=== PATIENT | female | born 1965 | race Caucasian/White ===

== ENCOUNTER → 2018-01-06 07:04 | Outpatient (CLI) | payer OTHER, SELFPAY ==
--- NOTE | 2018-01-06 07:11 | BI_ITS ---
MAMMOGRAPHY - BILATERAL SCREENING REASON FOR EXAM: Female, 52 years old. Routine annual screening examination. PERTINENT HISTORY: Grandmother with breast cancer. TECHNIQUE: Digital bilateral breast yovani (3D mammographic acquisition) in the CC and MLO projections. 2-D mediolateral oblique (MLO) and craniocaudad (CC) views of both breasts were obtained. CAD: Full Field Digital Mammography with Computer Added Detection was performed. COMPARISON: Comparison is made with prior examination dated November 24, 2016. FINDINGS: Breast Composition: The breasts are extremely dense, which lowers the sensitivity of mammography. There are no dominant masses or suspicious calcifications. No other significant abnormalities are identified. There has been no significant change since the prior study. BI/SCREENING MAMM (CAD), BILAT IMPRESSION: Stable bilateral screening mammogram. Yearly follow-up mammogram recommended. (A) ASSESSMENT CATEGORY: BIRADS Category 1: Negative. A letter regarding these results will be sent to the patient by the facility within 30 days. Approximately 10% of breast cancers are not detected by mammography. A normal mammogram should not delay biopsy of a clinically suspicious abnormality. [id number] Electronically Signed: Maximo Dickerson MD at 11:15 EST Tel [phone], Service support ,
== END ==
PROVIDERS: Family Provider Internal Medicine; PCP Internal Medicine; Referring Provider Obstetrics & Gynecology; Visit Provider Obstetrics & Gynecology
DX: Z12.31 Encounter for screening mammogram for malignant neoplasm of breast (principal)
CPT/HCPCS: 77063; 77067

== ENCOUNTER 2018-01-28 09:00 | Outpatient (RCR) | payer OTHER, SELFPAY | END 2018-01-28 23:59 | LOC: NS 09:00 | PROVIDERS: Family Provider Internal Medicine; PCP Internal Medicine; Visit Provider Obstetrics & Gynecology | DX: E66.9 Obesity, unspecified (principal); Z68.35 Body mass index [BMI] 35.0-35.9, adult; Z71.3 Dietary counseling and surveillance | CPT/HCPCS: 97802; 97803 ==

== ENCOUNTER 2018-02-18 10:00 | Outpatient (RCR) | payer OTHER, SELFPAY ==
[2017-12-21 09:43] VITALS: BMI 35.1
== END 2018-02-28 23:59 ==
LOC: NS 10:00
PROVIDERS: Family Provider Internal Medicine; PCP Internal Medicine; Visit Provider Obstetrics & Gynecology
DX: E66.9 Obesity, unspecified (principal); Z68.35 Body mass index [BMI] 35.0-35.9, adult; Z71.3 Dietary counseling and surveillance
CPT/HCPCS: 97803

== ENCOUNTER 2018-03-11 09:20 | Outpatient (RCR) | payer OTHER, SELFPAY ==
[2017-12-21 09:43] VITALS: BMI 35.1
== END 2018-03-31 23:59 ==
LOC: NS 09:20
PROVIDERS: Family Provider Internal Medicine; PCP Internal Medicine; Visit Provider Obstetrics & Gynecology
DX: E66.9 Obesity, unspecified (principal); Z68.35 Body mass index [BMI] 35.0-35.9, adult; Z71.3 Dietary counseling and surveillance
CPT/HCPCS: 97803

== ENCOUNTER 2018-04-08 10:22 | Outpatient (RCR) | payer OTHER, SELFPAY ==
[2017-12-21 09:43] VITALS: BMI 35.1
== END 2018-04-28 23:59 ==
LOC: NS 10:22
PROVIDERS: Family Provider Internal Medicine; PCP Internal Medicine; Visit Provider Obstetrics & Gynecology
DX: E66.9 Obesity, unspecified (principal); Z68.35 Body mass index [BMI] 35.0-35.9, adult; Z71.3 Dietary counseling and surveillance
CPT/HCPCS: 97803

== ENCOUNTER 2018-05-06 09:46 | Outpatient (RCR) | payer OTHER, SELFPAY ==
[2017-12-21 09:43] VITALS: BMI 35.1
[2018-05-02 14:08] VITALS: BMI 35.1
== END 2018-05-29 23:59 ==
LOC: NS 09:46
PROVIDERS: Family Provider Internal Medicine; PCP Internal Medicine; Visit Provider Obstetrics & Gynecology
DX: E66.9 Obesity, unspecified (principal); Z68.35 Body mass index [BMI] 35.0-35.9, adult; Z71.3 Dietary counseling and surveillance
CPT/HCPCS: 97803

== ENCOUNTER 2018-06-10 09:54 | Outpatient (RCR) | payer OTHER, SELFPAY ==
[2018-05-02 14:08] VITALS: BMI 35.1
== END 2018-06-28 23:59 ==
LOC: NS 09:54
PROVIDERS: Family Provider Internal Medicine; PCP Internal Medicine; Visit Provider Obstetrics & Gynecology
DX: E66.9 Obesity, unspecified (principal); Z68.35 Body mass index [BMI] 35.0-35.9, adult; Z71.3 Dietary counseling and surveillance
CPT/HCPCS: 97803

== ENCOUNTER 2018-09-23 10:44 | Outpatient (RCR) | payer SELFPAY ==
[2018-05-02 14:08] VITALS: BMI 35.1
== END 2018-09-28 23:59 ==
LOC: NS 10:44
PROVIDERS: Family Provider Internal Medicine; PCP Internal Medicine; Visit Provider Obstetrics & Gynecology
DX: E66.9 Obesity, unspecified (principal); Z68.35 Body mass index [BMI] 35.0-35.9, adult; Z71.3 Dietary counseling and surveillance
CPT/HCPCS: 97803

== ENCOUNTER 2018-10-28 08:19 | Outpatient (RCR) | payer SELFPAY ==
[2018-05-02 14:08] VITALS: BMI 35.1
== END 2018-10-29 23:59 ==
LOC: NS 08:19
PROVIDERS: Family Provider Internal Medicine; PCP Internal Medicine; Visit Provider Obstetrics & Gynecology
DX: E66.9 Obesity, unspecified (principal); Z68.35 Body mass index [BMI] 35.0-35.9, adult; Z71.3 Dietary counseling and surveillance
CPT/HCPCS: 97803

== ENCOUNTER 2018-11-18 08:29 | Outpatient (RCR) | payer SELFPAY ==
[2018-05-02 14:08] VITALS: BMI 35.1
== END 2018-11-28 23:59 ==
LOC: NS 08:29
PROVIDERS: Family Provider Internal Medicine; PCP Internal Medicine; Visit Provider Obstetrics & Gynecology
DX: E66.9 Obesity, unspecified (principal); Z68.35 Body mass index [BMI] 35.0-35.9, adult; Z71.3 Dietary counseling and surveillance
CPT/HCPCS: 97803

== ENCOUNTER → 2019-08-04 09:18 | Outpatient (CLI) | payer OTHER, SELFPAY ==
[2019-08-04 08:46] VITALS: BMI 35.1
[2019-08-04 13:20] LABS: T4 Free Direct 1.15 ng/dL (0.76-1.46); Thyroid Stim Hormone (TSH) 4.64 uIU/mL (0.358-3.74)
== END ==
PROVIDERS: PCP Internal Medicine; Referring Provider Internal Medicine; Visit Provider Internal Medicine
DX: Z13.29 Encounter for screening for other suspected endocrine disorder (principal)
CPT/HCPCS: 36415; 84439; 84443

== ENCOUNTER → 2019-08-15 08:15 | Outpatient (CLI) | payer OTHER, SELFPAY ==
[2019-08-04 08:46] VITALS: BMI 35.1
--- NOTE | 2019-08-15 08:16 | US_ITS ---
STUDY: THYROID ULTRASOUND REASON FOR EXAM: Female, 54 years old. Neck fullness TECHNIQUE: Ultrasound evaluation of the thyroid was performed with real-time and static patricia-scale imaging. COMPARISON: None. FINDINGS: RIGHT LOBE: The right lobe of the thyroid gland measures 3.8 cm x 1.2 cm x 1.1 cm. There is a heterogeneous echotexture. There is a 9 mm x 5 mm x 4 mm well-defined hypoechoic solid nodule in the upper pole. LEFT LOBE: The left lobe of the thyroid gland measures 3.9 cm x 1.0 cm x 1.1 cm. There is a heterogeneous echotexture. There is a 6 mm x 3 mm x 4 mm hypoechoic solid nodule in the midpole of the left lobe. ISTHMUS: The isthmus measures 2.0 mm. The regional lymph nodes are normal. US/Thyroid IMPRESSION: Heterogeneous echotexture of the right and left lobes of the thyroid. Subcentimeter hypoechoic solid nodules in both lobes as described. Electronically Signed: Maximo Dickerson, at 12:34 EDT , Service support ,
--- NOTE | 2019-08-15 08:40 | RAD_ITS ---
STUDY: X-RAY - PELVIS AND LEFT HIP REASON FOR EXAM: Female, 54 years old. PAIN, NKI TECHNIQUE: 3 views of the pelvis and hip. COMPARISON: None. FINDINGS: There is a non-specific bowel gas pattern. Normal visualized soft tissue structures. Normal bilateral iliac wings, sacroiliac joints and visualized sacrum. Normal bilateral superior and inferior pubic rami. Normal pubic symphysis. Normal bilateral ischial tuberosities. Normal visualized femoral head. Normal acetabulum. Normal hip joint. RAD/HIP, UNI W/ Pelvis 2-3 Views IMPRESSION: Normal x-ray examination of the pelvis and hip. Electronically Signed: Maximo Dickerson, at 9:25 EDT , Service support ,
== END ==
PROVIDERS: PCP Internal Medicine; Referring Provider Internal Medicine; Visit Provider Internal Medicine
DX: M25.552 Pain in left hip (principal); R22.1 Localized swelling, mass and lump, neck
CPT/HCPCS: 73502; 76536

== ENCOUNTER → 2019-09-15 10:29 | Outpatient (CLI) | payer OTHER, SELFPAY ==
[2019-09-15 09:57] VITALS: BMI 34.9
[2019-09-15 12:55] LABS: T4 Free Direct 1.15 ng/dL (0.76-1.46)
== END ==
PROVIDERS: PCP Internal Medicine; Referring Provider Internal Medicine; Visit Provider Internal Medicine
DX: R94.6 Abnormal results of thyroid function studies (principal)
CPT/HCPCS: 36415; 84439; 84443

== ENCOUNTER → 2019-10-24 07:38 | Outpatient (CLI) | payer OTHER, SELFPAY ==
[2018-05-02 14:08] VITALS: BMI 35.1
[2019-09-15 09:57] VITALS: BMI 34.9
--- NOTE | 2019-10-24 07:38 | BI_ITS ---
MAMMOGRAPHY - BILATERAL SCREENING REASON FOR EXAM: Female, 54 years old. Routine annual screening examination. PERTINENT HISTORY: Grandmother with breast cancer. TECHNIQUE: Digital bilateral breast jennifer (3D mammographic acquisition) in the CC and MLO projections. 2-D mediolateral oblique (MLO) and craniocaudad (CC) views of both breasts were obtained. CAD: Full Field Digital Mammography with Computer Added Detection was performed. COMPARISON: Comparison is made with prior study dated 01/06/2018 and 11/24/2016. FINDINGS: Breast Composition: The breasts are extremely dense, which lowers the sensitivity of mammography. I suspect a 1.8 cm x 0.85 cm nodule in the superior aspect of the left breast. This is not well seen on the craniocaudad view. THE PATIENT WILL BE RECALLED FOR ADDITIONAL VIEWS INCLUDING 90 DEGREE LATERAL AND COMPRESSION SPOT VIEWS OF THE LEFT BREAST. Stable benign appearing bilateral axillary lymph nodes. No other significant abnormalities are identified. BI/SCREEN MAMM (CAD) W/JENNIFER BILAT IMPRESSION: Possible 1.8 cm x 0.85 cm nodule in the superior aspect of the left breast seen on the MLO view. The patient will be recalled for additional views. Recall Side: Left Breast ASSESSMENT CATEGORY: BIRADS Category 0: Incomplete. Need additional imaging evaluation. A letter regarding these results will be sent to the patient by the facility within 30 days. Approximately 10% of breast cancers are not detected by mammography. A normal mammogram should not delay biopsy of a clinically suspicious abnormality. [id number] Electronically Signed: Maximo Dickerson, at 9:06 EDT , Service support ,
== END ==
PROVIDERS: PCP Internal Medicine; Referring Provider Obstetrics & Gynecology; Visit Provider Obstetrics & Gynecology
DX: Z12.31 Encounter for screening mammogram for malignant neoplasm of breast (principal)
CPT/HCPCS: 77063; 77067

== ENCOUNTER → 2019-10-26 08:58 | Outpatient (CLI) | payer OTHER, SELFPAY ==
[2019-09-15 09:57] VITALS: BMI 34.9
--- NOTE | 2019-10-26 09:02 | BI_ITS ---
MAMMOGRAPHY - UNILATERAL DIAGNOSTIC: LEFT BREAST REASON FOR EXAM: Female, 54 years old. Abnormal screening mammogram. PERTINENT HISTORY: Grandmother with breast cancer. TECHNIQUE: Compression spot views and 90 degree lateral view of the left breast were obtained. CAD: Full Field Digital Mammography with Computer Added Detection was performed. COMPARISON: Comparison is made with prior mammogram dated 10/24/2019. FINDINGS: Breast Composition: The breasts are extremely dense, which lowers the sensitivity of mammography. There are no dominant masses or suspicious calcifications. The previously possible nodule in the superior aspect of the left breast is not well seen at this examination most likely representing superimposition of tissue. Correlation with ultrasound is recommended. No other significant abnormalities are identified. BI/DIAG MAMM W/CAD, UNILAT IMPRESSION: No mammographic abnormality is seen at this time. Correlation with ultrasound of the left breast is recommended for further evaluation. ASSESSMENT CATEGORY: BIRADS Category 0: Incomplete. Need additional imaging evaluation. A letter regarding these results will be sent to the patient by the facility within 30 days. Approximately 10% of breast cancers are not detected by mammography. A normal mammogram should not delay biopsy of a clinically suspicious abnormality. Electronically Signed: Maximo Dickerson, at 10:21 EDT , Service support ,
--- NOTE | 2019-10-26 09:02 | US_ITS ---
STUDY: ULTRASOUND BREAST - LEFT REASON FOR EXAM: Female, 54 years old. Abnormal screening mammogram. TECHNIQUE: Axial and longitudinal images of the LEFT breast were performed with a high resolution ultrasound transducer. # OF IMAGES: [id number] COMPARISON: Comparison is made with prior mammogram done earlier in the day as well as prior mammogram dated 10/24/2019. FINDINGS: LEFT Breast: There is a 1.2 cm x 1.4 cm x 0.7 cm hypoechoic/complex cystic nodule with slightly irregular borders at the 2 o''clock position of the breast at 3 cm from nipple. A biopsy is recommended for further evaluation. Incidental note is made of a 5 mm x 6 mm x 5 mm hypoechoic nodule with a fatty hilum suggestive of a benign lymph node at the 3 o''clock position of the breast. US/Breast Limited Unilateral IMPRESSION: 1.2 cm x 1.4 cm x 0.7 cm hypoechoic/complex cystic nodule with slightly irregular borders at the 2 o''clock position of the breast at 3 cm from nipple. A biopsy is recommended for further evaluation. ASSESSMENT CATEGORY: BIRADS Category 4: Suspicious - Biopsy Should Be Considered. A letter regarding these results will be sent to the patient by the facility within 30 days. Electronically Signed: Maximo Dickerson, at 13:12 EDT , Service support ,
== END ==
PROVIDERS: PCP Internal Medicine; Referring Provider Obstetrics & Gynecology; Visit Provider Obstetrics & Gynecology
DX: N63.20 Unspecified lump in the left breast, unspecified quadrant (principal)
CPT/HCPCS: 76642; 77065

== ENCOUNTER → 2019-10-27 09:47 | Outpatient (CLI) | payer OTHER, SELFPAY ==
[2019-10-27 09:16] VITALS: BMI 34.9
[2019-10-27 11:55] LABS: Absolute Lymphocyte Count 1.87 X10^3/uL (0.83-4.51); Absolute Neutrophil Count 2.9 X10^3/uL (2.0-7.7); Basophil# 0.04 X10^3/uL; Basophil% 0.7 % (0-1); Eosinophil# 0.17 X10^3/uL; Eosinophils% 3.2 % (0-5); Hematocrit 42.4 % (37-47); Hemoglobin 13.7 g/dL (12.0-15.0); Lymphocyte # 1.87 X10^3/ul (4.0); Lymphocyte % 34.8 % (19-41); Mean Corp Hgb Conc 32.3 g/dL (32-36); Mean Corpuscular Hgb 28.7 pg (27.0-32.0); Mean Corpuscular Volume 88.7 fL (81-99); Monocyte% 7.4 % (0-10); NRBC Flagged by Analyzer 0 % (0-5); Neutrophil # 2.89 X10^3/uL (2.7-7.7); Neutrophil % 53.7 % (47-70); Platelet Count 111 K/mm3 (150-450); RBC Distribution Width CV 12.6 % (11.6-14.6); RBC Distribution Width SD 40.8 fl (35.1-43.9); Red Blood Count 4.78 M/mm3 (4.2-5.4); White Blood Count 5.4 K/mm3 (4.4-11.0)
[2019-10-27 12:28] LABS: ALB/GLOB Ratio 0.9 RATIO (0.9-2.4); AST(SGOT) 19 U/L (15-37); Alanine Aminotransfer ALT/SGPT 31 U/L (13-56); Albumin, Serum 3.6 g/dL (3.2-5.0); Alkaline Phosphatase 67 U/L (45-117); Anion Gap 4 (5-15); BUN 17 mg/dL (7-18); BUN/Creat Ratio 21.9 RATIO (10-20); Calcium,Total 9.1 mg/dL (8.5-10.1); Chloride 106 mmol/L (98-107); Cholesterol 231 mg/dL (200); Creatinine, Serum 0.78 mg/dL (0.55-1.02); EST Glomerular Filtration Rate 83 mL/min (>60); Est Glom Filt Rate - Afr Amer 100 mL/min (>60); Globulin 4.1 g/dL (2.2-4.2); Glucose 69 mg/dL (74-106); High Density Lipoprotein 49 mg/dL; Potassium 4.3 mmol/L (3.5-5.1); Protein, Total 7.7 g/dL (6.4-8.2); Sodium Level 139 mmol/L (136-145); Triglycerides 145 mg/dL; Very Low Density Lipoprotein 29 mg/dL (5-40)
== END ==
PROVIDERS: PCP Internal Medicine; Referring Provider Internal Medicine; Visit Provider Internal Medicine
DX: Z00.00 Encounter for general adult medical examination without abnormal findings (principal)
CPT/HCPCS: 36415; 80053; 80061; 85025

== ENCOUNTER → 2019-10-31 | Outpatient (CLI) | payer OTHER, SELFPAY ==
--- NOTE | 2019-10-31 | BRBX_PTH ---
PATIENT: FELIPE MOORE LOC: [facility] U#:[id number] AGE/SX: 54/F ROOM: RE10/31/[address]: Dr. Gildardo Saha MD : 1965 BED: DIS: 10/31/2019 SPEC #: [id number] RECD: 11/01/19 15:26 STATUS: FRANK REJoel #: [id number] AURE: 10/31/19 00:[address]: Gildardo Saha DEPT: SURGICAL PATHOLOGY RECD BY: Slava Garay ENTERED: 11/01/19 10:33 SP TYPE: BREAST BX OTHR DR: Dr. Val Ruffin MD Tissues: Left breast, NOS Procedures: Surgery Specimen Level IV HEADER OPERATION: Ultrasound-guided left breast biopsy PRE-OP DIAGNOSIS: Left breast mass TISSUE SUBMITTED: Left breast tissue MICROSCOPIC DIAGNOSIS Left breast tissue, ultrasound-guided core biopsy: Fibrocystic changes. Focal microcalcification. Negative for atypia or malignancy. See comment. ANEESH:arabella 11/02/19 COMMENT Correlation with clinical, radiologic findings and appropriate follow up are necessary. MICROSCOPIC DESCRIPTION Slides are reviewed. GROSS DESCRIPTION Received in fixative is one container labeled with the patient name and designated left breast. The specimen consists of multiple elongated fragments of wilson-yellow fibroadipose tissue that in aggregate measure 1.5 x 1.5 x 0.1 cm. The entire specimen is submitted in one cassette. / ANEESH:arabella 11/01/19 TC:5 CPT: 93410
[2019-10-31 13:44] VITALS: BMI 34.9
== END | disposition home or self-care (01) ==
PROVIDERS: PCP Internal Medicine; Referring Provider Surgery; Visit Provider Surgery
DX: N60.12 Diffuse cystic mastopathy of left breast (principal); R92.0 Mammographic microcalcification found on diagnostic imaging of breast
CPT/HCPCS: 88305

== ENCOUNTER → 2019-11-15 | Outpatient (CLI) | payer OTHER, SELFPAY ==
[2019-11-15 09:12] VITALS: BMI 34.9
[2019-11-21 10:27] LABS: HPV APTIMA, High Risk Negative (Negative)
== END | disposition home or self-care (01) ==
LOC: LABSPEC 15:30
PROVIDERS: PCP Internal Medicine; Visit Provider Obstetrics & Gynecology
DX: Z12.4 Encounter for screening for malignant neoplasm of cervix (principal)
CPT/HCPCS: 87624; 88175; G0145

== ENCOUNTER → 2020-06-19 08:51 | Outpatient (CLI) | payer OTHER, SELFPAY ==
[2020-02-13 15:33] VITALS: BMI 35.4
--- NOTE | 2020-06-19 08:54 | US_ITS ---
STUDY: ULTRASOUND BREAST - LEFT REASON FOR EXAM: Female, 55 years old. Follow-up for left breast biopsy. TECHNIQUE: Axial and longitudinal images of the LEFT breast were performed with a high resolution ultrasound transducer. # OF IMAGES: 38 COMPARISON: Comparison is made with prior mammogram done earlier today as well as prior ultrasound of the left breast dated 10/26/2019. FINDINGS: LEFT Breast: The previously seen cystic nodule is not present at this time. This was previously drained. At 3 o''clock position to swallow some nipple, there is a 6 mm x 7 mm x 4 mm lymph node. US/Breast Limited Unilateral IMPRESSION: Stable appearance of the left axillary lymph node. The previously seen cystic nodule is not present at this time. ASSESSMENT CATEGORY: BIRADS Category 2: Benign. A letter regarding these results will be sent to the patient by the facility within 30 days. Electronically Signed: Maximo Dickerson MD at 14:04 EDT , Service support ,
--- NOTE | 2020-06-19 08:55 | BI_ITS ---
MAMMOGRAPHY - UNILATERAL DIAGNOSTIC: LEFT BREAST REASON FOR EXAM: Female, 55 years old. Six-month follow-up following ultrasound-guided left breast biopsy. PERTINENT HISTORY: Grandmother with breast cancer. TECHNIQUE: Digital unilateral breast yovani (3D mammographic acquisition) in the CC and MLO projections. 2-D mediolateral oblique (MLO) and craniocaudad (CC) views of both breasts were obtained. CAD: Full Field Digital Mammography with Computer Added Detection was performed. COMPARISON: Comparison is made with prior mammogram dated 10/26/2019 and 10/24/2019. FINDINGS: Breast Composition: The breasts are extremely dense, which lowers the sensitivity of mammography. There are no dominant masses or suspicious calcifications. A tissue clip marker is seen in the upper lateral aspect of the left breast at the site of the prior ultrasound-guided breast biopsy. No other significant abnormalities are identified. There has been no significant change since the prior study. BI/DIAG MAMM W/CAD, UNILAT IMPRESSION: Stable unilateral diagnostic mammogram. One year follow-up mammogram recommended. (A) ASSESSMENT CATEGORY: BIRADS Category 2: Benign. A letter regarding these results will be sent to the patient by the facility within 30 days. Approximately 10% of breast cancers are not detected by mammography. A normal mammogram should not delay biopsy of a clinically suspicious abnormality. Electronically Signed: Maximo Dickerson MD at 9:38 EDT , Service support ,
== END ==
PROVIDERS: PCP Internal Medicine; Referring Provider Surgery; Visit Provider Surgery
DX: R92.8 Other abnormal and inconclusive findings on diagnostic imaging of breast (principal)
CPT/HCPCS: 76642; 77061; 77065; G0279

== ENCOUNTER 2021-04-06 10:43 | Observation (INO) | payer OTHER, SELFPAY ==
[2021-04-06 10:44] VITALS: BP 140/92; PULSE 106; RESP 17; TEMP 36.6; O2SAT 98; BMI 36.6
--- NOTE | 2021-04-06 11:10 | EDS_ITS ---
HPI History of Present Illness Chief Complaint: Abd Pain Informant: patient Onset/Context/Timing Onset: Yesterday Context: Gradual Onset Current Severity: Moderate Maximum Severity: Moderate Narrative Narrative: Patient presents secondary abdominal pain with nausea and vomiting. Patient states around 11 PM last evening she developed epigastric abdominal pain that slightly wraps around both sides of her abdomen. Around 430 this morning she started vomiting. She did have a normal bowel movement this morning. No fever or chills. PFSH PFS Medical History Endometriosis History of abnormal cervical Pap smear Impetigo Home Medications multivitamin 1 tab PO DAILY 08/04/19 [History Last Taken Unknown] turmeric root extract 500 mg capsule 500 mg PO DAILY 11/15/19 [History Last Taken Unknown] mupirocin 2 % topical ointment 1 applic TOPICAL TID 7 Days #22 g 03/21/21 [Rx Last Taken Unknown] ascorbic acid (vitamin C) [Vitamin C] mg PO DAILY 04/06/21 [History Last Taken Unknown] cholecalciferol (vitamin D3) [Vitamin D3] mcg PO DAILY 04/06/21 [History Last Taken Unknown] zinc 100 mg PO DAILY 04/06/21 [History Last Taken Unknown] Allergy/AdvReac Type Severity Reaction Status Date / Time hydroxyzine [From Atarax] Allergy Unknown Rash Verified 04/06/21 10:43 escitalopram [From Lexapro] Allergy Hives Verified 04/06/21 10:43 Family History Brother Heart disease Dwarfism Alcohol abuse Grandmother Breast cancer Brother Hypertension Thyroid disorder Father Hypertension Melanoma Mother Uterine cancer Daughter , 1 year old 1994 Spinal muscular atrophy Son , 1996 Spinal muscular atrophy Surgical History H/O breast biopsy History of laparoscopy History of toe surgery Social History adopted: No household members: family housing: house number of children: 2 pets and animals: Yes Smoking Status: Never smoker second hand exposure: No alcohol intake: never substance use type: does not use caffeine: Yes what type of physical activity do you participate in: walking frequency: 1-2 times per week seatbelt use: always do you feel safe at home: Yes additional social history: - Greg Patient owns dance studio ROS ROS ED Constitutional Constitutional ED: Denies chills or fever(s) Eyes Eyes: Denies change in vision ENT ENT ED: Denies sore throat Cardiovascular Cardiovascular: Denies chest pain Respiratory/Chest Respiratory/Chest: Denies cough or dyspnea Gastrointestinal Gastrointestinal: Reports abdominal pain, nausea and vomiting; Denies diarrhea Genitourinary Genitourinary ED: Denies dysuria Musculoskeletal Musculoskeletal: Denies back pain Integumentary Denies rash Neurologic Neurologic: Denies headache(s) or weakness Allergic/Immunologic Allergic/Immunologic ED: Denies urticaria EXAM Physical Exam Const Vital Signs: 04/06/21 10:44 04/06/21 12:36 04/06/21 15:21 Temperature 97.9 F Temperature Source Temporal Pulse Rate 106 H 88 83 Respiratory Rate 17 16 16 Blood Pressure 140/92 H 127/80 H 134/85 H Blood Pressure Mean 108 95 101 Pulse Ox 98 97 97 Oxygen Delivery Method Room Air Room Air Room Air 04/06/21 18:03 Temperature Temperature Source Pulse Rate 95 Respiratory Rate 18 Blood Pressure 126/76 H Blood Pressure Mean 92 Pulse Ox 98 Oxygen Delivery Method Room Air Positive well nourished and well developed General Appearance ED: well developed HEENT Reports moist mucous membranes Eyes PERRL and EOMs intact bilaterally Neck supple Chest Wall inspection of chest normal and palpation of chest normal Resp normal respiratory effort and clear to auscultation bilaterally Cardio regular rate and regular rhythm GI Auscultation: hypoactive bowel sounds Palpation: soft and tender epigastric and RUQ; Negative for guarding or rebound tenderness present Extremity normal to inspection Neuro oriented x3 Sensorium / Orientation: alert Psych mental status grossly normal Skin no rashes or lesions noted MDM MDM MDM Narrative Medical decision making narrative: Patient given morphine and Zofran for pain. Lab work ordered. Lab Data Attestation: I reviewed the patient's lab results. Labs: Laboratory Results - last 24 hr 04/06/21 04/06/21 11:20 11:20 WBC 13.1 H RBC 4.90 Hgb 14.4 Hct 42.3 MCV 86.3 MCH 29.4 MCHC 34.0 RDW Std Deviation 38.5 RDW Coeff of Jessica 12.1 Plt Count 274 MPV 10.4 Immature Gran % (Auto) 0.300 Neut % (Auto) 87.3 H Lymph % (Auto) 8.2 L [place] % (Auto) 3.9 Eos % (Auto) 0.0 Baso % (Auto) 0.3 Absolute Neuts (auto) 11.5 H Absolute Lymphs (auto) 1.08 Nucleated RBC % 0 Sodium 136 Potassium 3.8 Chloride 105 Carbon Dioxide 25.0 Anion Gap 6 BUN 12 Creatinine 0.69 Estim Creat Clear Calc 73.72 Est GFR (MDRD) Af Amer 113 Est GFR (MDRD) Non-Af 94 BUN/Creatinine Ratio 17.3 Glucose 112 H Calcium 9.3 Total Bilirubin 0.50 Direct Bilirubin 0.15 AST 13 L ALT 23 Alkaline Phosphatase 61 Total Protein 8.1 Albumin 3.9 Globulin 4.2 Lipase 56 L Radiography Diagnostic Testing: Clinical Impression(s) from Imaging Studies Abdomen/Pelvis CT 04/06/21 12:15 IMPRESSION: 1. Layering material within a moderately distended gallbladder consistent with small stones and sludge. No cholecystic fluid or duct dilatation. 2. Moderate to large amount retained formed stool in the proximal colon including the ascending colon to the level of the hepatic flexure. There is mild wall thickening and mild wall edema at the level of the hepatic flexure, and mild colitis is a consideration. No mass is noted. 3. There is early fecalization of the terminal ileum. Findings may represent sequelae of chronic stasis due to the abnormalities of the hepatic flexure. 4. No evidence of diverticulitis. The appendix is not visualized. 5. No evidence of renal calcifications or obstructive uropathy. Electronically Signed: Ankit Chadwick MD at 14:38 EST , Gallbladder Ultrasound 04/06/21 15:13 IMPRESSION: 1. Cholelithiasis, gallbladder is distended. No sonographic Blake''s sign or pericholecystic fluid. No evidence of biliary ductal dilatation. There is mild gallbladder wall thickening however, an early cholecystitis is a consideration. 2. Diffuse fatty infiltration liver, consistent with hepatic steatosis. No evidence of hepatic masses or ductal dilatation. 3. Normal appearance of the RIGHT kidney. Electronically Signed: Ankit Chadwick MD at 18:36 EST , Treatment and Re-Evaluation Comments:: Patient does feel improved after pain and nausea medication. Lab work reviewed with her. Due to slight elevation white count and normal LFTs CT of the abdomen and pelvis with contrast is obtained. CT does reveal evidence of layering material in a moderately distended gallbladder. No other acute findings noted in the abdomen. On repeat exam she did ask for more pain medication and continued to be tender in the epigastrium and right upper quadrant. Ultrasound is obtained that shows mild gallbladder wall thickening. I spoke with Dr. Lambert who evaluate the patient. He will admit the patient for further treatment. Patient is given a dose of Zosyn. Discharge Plan Triage Chief Complaint: Abd Pain ED Provider: Judith Huff Dx/Rx/DC Orders Clinical Impression: Cholecystitis Prescriptions: No Action multivitamin [Daily Multi-Vitamin] Tablet 1 tab PO DAILY RF: 0 turmeric root extract 500 mg capsule 500 mg PO DAILY RF: 0 mupirocin 2 % ointment 1 applic topical TID 7 Days Qty: 22 RF: 1 zinc 100 mg Tablet 100 mg PO DAILY RF: 0 ascorbic acid (vitamin C) [Vitamin C] 500 mg Tablet PO DAILY RF: 0 cholecalciferol (vitamin D3) [Vitamin D3] 25 mcg (1,000 unit) Tablet PO DAILY RF: 0 Primary Care Provider: Val Ruffin Referrals: Val Ruffin MD [Primary Care Provider] - Disposition Disposition: [facility]
[2021-04-06 11:29] LABS: Absolute Lymphocyte Count 1.08 X10^3/uL (0.83-4.51); Absolute Neutrophil Count 11.5 X10^3/uL (2.0-7.7); Basophil# 0.04 X10^3/uL; Basophil% 0.3 % (0-1); Hematocrit 42.3 % (37-47); Hemoglobin 14.4 g/dL (12.0-15.0); Lymphocyte # 1.08 X10^3/ul (0.83-4.51); Lymphocyte % 8.2 % (19-41); Mean Corpuscular Hgb 29.4 pg (27.0-32.0); Mean Corpuscular Volume 86.3 fL (81-99); Mean Platelet Vol. 10.4 fl (6.2-12.0); Monocyte# 0.51 X10^3/uL; Monocyte% 3.9 % (0-10); NRBC Flagged by Analyzer 0 % (0-5); Neutrophil # 11.46 X10^3/uL (2.7-7.7); Neutrophil % 87.3 % (47-70); Platelet Count 274 K/mm3 (150-450); RBC Distribution Width CV 12.1 % (11.6-14.6); RBC Distribution Width SD 38.5 fl (35.1-43.9); White Blood Count 13.1 K/mm3 (4.4-11.0)
[2021-04-06] MEDS: Morphine 4 MG/ML Syringe IV ×2 (11:29→15:20)
[2021-04-06] MEDS: 0.9% Normal Saline 1,000 ML 150 ML IV ×2 (11:29→19:17)
[2021-04-06] MEDS: Ondansetron 4 MG/2 ML Vial IV ×3 (11:29→21:56)
[2021-04-06 11:44] LABS: AST(SGOT) 13 U/L (15-37); Alanine Aminotransfer ALT/SGPT 23 U/L (13-56); Albumin, Serum 3.9 g/dL (3.2-5.0); Alkaline Phosphatase 61 U/L (45-117); Anion Gap 6 (5-15); BUN 12 mg/dL (7-18); BUN/Creat Ratio 17.3 RATIO (10-20); Bilirubin, Direct 0.15 mg/dL (0.00-0.30); Calcium,Total 9.3 mg/dL (8.5-10.1); Chloride 105 mmol/L (98-107); Creatinine, Serum 0.69 mg/dL (0.55-1.02); EST Glomerular Filtration Rate 94 mL/min (>60); Est Glom Filt Rate - Afr Amer 113 mL/min (>60); Estimated Creatinine Clearance 73.72 ml/min; Globulin 4.2 g/dL (2.2-4.2); Glucose 112 mg/dL (74-106); Lipase 56 U/L (73-393); Potassium 3.8 mmol/L (3.5-5.1); Protein, Total 8.1 g/dL (6.4-8.2); Sodium Level 136 mmol/L (136-145)
--- NOTE | 2021-04-06 12:15 | CT_ITS ---
INDICATION: abd pain -- IV PO Contrast EXAMINATION: CT ABDOMEN AND PELVIS with CONTRAST - CT Abdomen And Pelvis W/ Contrast Injection TECHNIQUE: Multiple axial images were obtained of the abdomen following administration of IV contrast. Planar reconstructions obtained. A radiation dose optimization technique was used for this scan. IV Contrast dosage and agent: 100 mL Isovue 300. Oral contrast: Oral contrast was introduced. COMPARISON: None. FINDINGS: LOWER THORAX: Minimal interstitial prominence at the lung bases, mild pleural thickening noted. No consolidation, no effusion. Cardiac contour is normal. HEPATOBILIARY: Liver: The liver is homogeneous and shows no evidence of focal lesion. Gallbladder: Gallbladder is moderately distended, layering sludge versus small non radiodense stones are present. No pericholecystic fluid. No ductal dilatation. Pancreas: Pancreas is normal size configuration and density. No mass is noted. Spleen: The spleen is homogeneous and normal in size. . BOWEL: Stomach: The stomach is normal in size configuration, no evidence of focal masses, abnormal calcifications. No hiatal hernia noted. Bowel: 1. Large and small bowel loops have normal configuration. No evidence alok small bowel obstruction. 2. There is a moderate to large amount retained formed stool within the proximal colon and moderate wall thickening is noted particularly at the level of hepatic flexure. No distinct mass is noted. 3. There is early fecalization of the terminal ileum. No alok bowel obstruction noted. Appendix: Not clearly visible.: GENITOURINARY: Adrenals: Both adrenal glands are normal in size. Kidneys: Kidneys appear symmetric in size. No calcifications are seen in the collecting system. There is no hydronephrosis or surrounding fluid. Bladder: Normal Pelvic organs: The visualized pelvic organs are normal in size and configuration. No masses or adenopathy noted. RETROPERITONEUM: There is normal appearance of the abdominal aorta and inferior vena cava. LYMPH NODES: No evidence of retroperitoneal or para-aortic masses fluid collections or adenopathy. PERITONEAL CAVITY: No ascites noted ANTERIOR ABDOMINAL WALL: Normal, no hernia identified. BONES AND SOFT TISSUES: The skeleton shows no evidence for fractures or destructive lesions. OTHER: None CT/Abdomen/Pelvis WITH Contrast IMPRESSION: 1. Layering material within a moderately distended gallbladder consistent with small stones and sludge. No cholecystic fluid or duct dilatation. 2. Moderate to large amount retained formed stool in the proximal colon including the ascending colon to the level of the hepatic flexure. There is mild wall thickening and mild wall edema at the level of the hepatic flexure, and mild colitis is a consideration. No mass is noted. 3. There is early fecalization of the terminal ileum. Findings may represent sequelae of chronic stasis due to the abnormalities of the hepatic flexure. 4. No evidence of diverticulitis. The appendix is not visualized. 5. No evidence of renal calcifications or obstructive uropathy. Electronically Signed: Ankit Chadwick MD at 14:38 EST ,
[2021-04-06 12:36] VITALS: BP 127/80; PULSE 88; RESP 16; O2SAT 97
--- NOTE | 2021-04-06 15:13 | US_ITS ---
INDICATION: pain EXAMINATION: Ultrasound US Abdomen Complete TECHNIQUE: Calderón-scale and color Doppler imaging was performed of the abdomen. COMPARISON: None. FINDINGS: LIVER: There is diffusely increased echotexture. No focal hepatic lesion. No intrahepatic biliary ductal dilatation. There is no free fluid. The liver measures 16.6 cm. GALLBLADDER AND BILIARY TREE: Cholelithiasis is noted. No sonographic Blake''s sign. Gallbladder wall is estimated at 3 mm. No pericholecystic fluid. Gallbladder is distended measuring 9.4 cm in length. SONOGRAPHIC BLAKE''S SIGN: Negative. PANCREAS: Obscured by shadowing gas SPLEEN: The spleen is normal in size and homogeneous in echotexture. RIGHT kidney GENERAL: There is no hydronephrosis. No shadowing calculus, focal lesion, or perinephric collection is demonstrated. RIGHT kidney: 10.0 x 4.1 x 5.2 cm. VESSELS: Submitted longitudinal images of the intra-abdominal aorta demonstrate no gross abnormalities and are unremarkable. The IVC is patent. US/Gallbladder IMPRESSION: 1. Cholelithiasis, gallbladder is distended. No sonographic Blake''s sign or pericholecystic fluid. No evidence of biliary ductal dilatation. There is mild gallbladder wall thickening however, an early cholecystitis is a consideration. 2. Diffuse fatty infiltration liver, consistent with hepatic steatosis. No evidence of hepatic masses or ductal dilatation. 3. Normal appearance of the RIGHT kidney. Electronically Signed: Ankit Chadwick MD at 18:36 EST ,
[2021-04-06 15:21] VITALS: BP 134/85; PULSE 83; RESP 16; O2SAT 97
[2021-04-06 18:03] VITALS: BP 126/76; PULSE 95; RESP 18; O2SAT 98
--- NOTE | 2021-04-06 19:32 | CON.PCM.SX_ITS ---
Assessment & Plan Assessment/Plan (1) Acute cholecystitis due to biliary calculus: PLAN: My plan is to perform a laparoscopic cholecystectomy without intraoperative cholangiogram. The planned surgical procedure was discussed extensively with the patient. The risks, benefits, anticipated outcomes and possible complication were mentioned. My staff has also explained the procedure in understandable terms and the patient was given the option to take printed material concerning the planned procedure. The patient had the opportunity to ask questions concerning the planned procedure. The patient freely consents to the planned procedure. HPI Consult Data Date of Consult: 04/06/21 HPI Narrative HPI Narrative: FELIPE MOORE, is a 55 F who presents secondary abdominal pain with nausea and vomiting. Patient states around 11 PM last evening she developed epigastric abdominal pain that slightly wraps around both sides of her abdomen. Around 430 this morning she started vomiting. She did have a normal bowel movement this morning. No fever or chills. FORMERLY [facility], [facility] Medical History Endometriosis History of abnormal cervical Pap smear Impetigo Home Medications multivitamin 1 tab PO DAILY 08/04/19 [History Last Taken Unknown] turmeric root extract 500 mg capsule 500 mg PO DAILY 11/15/19 [History Last Taken Unknown] mupirocin 2 % topical ointment 1 applic TOPICAL TID 7 Days #22 g 03/21/21 [Rx Last Taken Unknown] ascorbic acid (vitamin C) [Vitamin C] mg PO DAILY 04/06/21 [History Last Taken Unknown] cholecalciferol (vitamin D3) [Vitamin D3] mcg PO DAILY 04/06/21 [History Last Taken Unknown] zinc 100 mg PO DAILY 04/06/21 [History Last Taken Unknown] Allergy/AdvReac Type Severity Reaction Status Date / Time hydroxyzine [From Atarax] Allergy Unknown Rash Verified 04/06/21 10:43 escitalopram [From Lexapro] Allergy Hives Verified 04/06/21 10:43 Family History Brother Heart disease Dwarfism Alcohol abuse Grandmother Breast cancer Brother Hypertension Thyroid disorder Father Hypertension Melanoma Mother Uterine cancer Daughter , 1 year old 1994 Spinal muscular atrophy Son , 1996 Spinal muscular atrophy Surgical History H/O breast biopsy History of laparoscopy History of toe surgery Social History adopted: No household members: family housing: house number of children: 2 pets and animals: Yes Smoking Status: Never smoker second hand exposure: No alcohol intake: never substance use type: does not use caffeine: Yes what type of physical activity do you participate in: walking frequency: 1-2 times per week seatbelt use: always do you feel safe at home: Yes additional social history: - Greg Patient owns [employer] Constitutional Constitutional: Denies chills or fever(s) Cardiovascular Cardiovascular: Denies chest pain Respiratory/Chest Respiratory/Chest: Denies cough or dyspnea Gastrointestinal Gastrointestinal: Reports abdominal pain, nausea and vomiting; Denies diarrhea Genitourinary Genitourinary: Denies change in urinary stream Physical Exam Const alert, oriented x3 and no apparent distress General Appearance: cooperative HEENT normocephalic and head/scalp atraumatic Eyes PERRL and EOMs intact bilaterally Resp clear to auscultation bilaterally Cardio Rate: regular rate Rhythm: regular rhythm GI Palpation: tender epigastric and RUQ; Negative for guarding Skin no rashes or lesions noted Lab / Micro Data Result Diagrams: 04/06/21 11:20 04/06/21 11:20 Labs: Laboratory Results - last 24 hr 04/06/21 11:20: WBC 13.1 H, RBC 4.90, Hgb 14.4, Hct 42.3, MCV 86.3, MCH 29.4, MCHC 34.0, RDW Std Deviation 38.5, RDW Coeff of Jessica 12.1, Plt Count 274, MPV 10.4, Immature Gran % (Auto) 0.300, Neut % (Auto) 87.3 H, Lymph % (Auto) 8.2 L, [place] % (Auto) 3.9, Eos % (Auto) 0.0, Baso % (Auto) 0.3, Absolute Neuts (auto) 11.5 H, Absolute Lymphs (auto) 1.08, Nucleated RBC % 0 04/06/21 11:20: Sodium 136, Potassium 3.8, Chloride 105, Carbon Dioxide 25.0, Anion Gap 6, BUN 12, Creatinine 0.69, Estim Creat Clear Calc 73.72, Est GFR (MDRD) Af Amer 113, Est GFR (MDRD) Non-Af 94, BUN/Creatinine Ratio 17.3, Glucose 112 H, Calcium 9.3, Total Bilirubin 0.50, Direct Bilirubin 0.15, AST 13 L, ALT 23, Alkaline Phosphatase 61, Total Protein 8.1, Albumin 3.9, Globulin 4.2, Lipase 56 L Radiology Impression Abdomen/Pelvis CT 04/06/21 12:15 IMPRESSION: 1. Layering material within a moderately distended gallbladder consistent with small stones and sludge. No cholecystic fluid or duct dilatation. 2. Moderate to large amount retained formed stool in the proximal colon including the ascending colon to the level of the hepatic flexure. There is mild wall thickening and mild wall edema at the level of the hepatic flexure, and mild colitis is a consideration. No mass is noted. 3. There is early fecalization of the terminal ileum. Findings may represent sequelae of chronic stasis due to the abnormalities of the hepatic flexure. 4. No evidence of diverticulitis. The appendix is not visualized. 5. No evidence of renal calcifications or obstructive uropathy. Electronically Signed: Ankit Chadwick MD at 14:38 EST , Gallbladder Ultrasound 04/06/21 15:13 IMPRESSION: 1. Cholelithiasis, gallbladder is distended. No sonographic Blake''s sign or pericholecystic fluid. No evidence of biliary ductal dilatation. There is mild gallbladder wall thickening however, an early cholecystitis is a consideration. 2. Diffuse fatty infiltration liver, consistent with hepatic steatosis. No evidence of hepatic masses or ductal dilatation. 3. Normal appearance of the RIGHT kidney. Electronically Signed: Ankit Chadwick MD at 18:36 EST ,
[2021-04-06 20:14] VITALS: BP 125/72; PULSE 85; RESP 16; TEMP 37; O2SAT 98
[2021-04-06 21:07] VITALS: BMI 36.8
[2021-04-06] MEDS: HYDROmorphone 0.5 MG/0.5 ML SYRINGE IV (21:57)
[2021-04-06 22:00] VITALS: BP 124/75; PULSE 95; RESP 18; TEMP 37; O2SAT 93
[2021-04-07] VITALS (13 sets, daily range): BP systolic 102–124; BP diastolic 67–78; PULSE 74–115; RESP 16–18; TEMP 36.7–37.7; O2SAT 92–98; BMI 36.8
[2021-04-07] MEDS: 0.9% Normal Saline 1,000 ML 100 ML IV ×2 (05:40→12:00)
--- NOTE | 2021-04-07 05:55 | EKG12_ITS ---
Test Reason : AM EKG Blood Pressure : / mmHG Vent. Rate : 124 BPM Atrial Rate : 124 BPM P-R Int : 166 ms QRS Dur : 088 ms QT Int : 304 ms P-R-T Axes : 059 -26 049 degrees QTc Int : 436 ms Sinus tachycardia Nonspecific T wave abnormality No previous ECGs available Confirmed by ROSALIND JONES, ZARIA ([id number]), editor greeting card CALEB BOWMAN ([id number]) on 04/08/2021 10:54:11 AM Referred By: GWEN Confirmed By:ZARIA BOYER MD
[2021-04-07] MEDS: Acetaminophen 325 MG Tablet 650 MG PO ×2 (06:16→15:35)
[2021-04-07 06:36] LABS: Absolute Lymphocyte Count 1.22 X10^3/uL (0.83-4.51); Basophil# 0.04 X10^3/uL; Basophil% 0.4 % (0-1); Eosinophil# 0.01 X10^3/uL; Eosinophils% 0.1 % (0-5); Hematocrit 37.2 % (37-47); Hemoglobin 12.2 g/dL (12.0-15.0); Lymphocyte # 1.22 X10^3/ul (0.83-4.51); Lymphocyte % 11.9 % (19-41); Mean Corp Hgb Conc 32.8 g/dL (32-36); Mean Corpuscular Hgb 29.1 pg (27.0-32.0); Mean Corpuscular Volume 88.8 fL (81-99); Mean Platelet Vol. 11.1 fl (6.2-12.0); Monocyte# 0.96 X10^3/uL; Monocyte% 9.4 % (0-10); NRBC Flagged by Analyzer 0 % (0-5); Neutrophil # 7.97 X10^3/uL (2.7-7.7); Neutrophil % 77.8 % (47-70); Platelet Count 203 K/mm3 (150-450); RBC Distribution Width CV 12.7 % (11.6-14.6); RBC Distribution Width SD 41.4 fl (35.1-43.9); Red Blood Count 4.19 M/mm3 (4.2-5.4); White Blood Count 10.2 K/mm3 (4.4-11.0)
[2021-04-07 06:59] LABS: ALB/GLOB Ratio 0.8 RATIO (0.9-2.4); AST(SGOT) 28 U/L (15-37); Alanine Aminotransfer ALT/SGPT 30 U/L (13-56); Albumin, Serum 3.1 g/dL (3.2-5.0); Alkaline Phosphatase 56 U/L (45-117); Anion Gap 4 (5-15); BUN 10 mg/dL (7-18); BUN/Creat Ratio 12.4 RATIO (10-20); Calcium,Total 8.3 mg/dL (8.5-10.1); Chloride 109 mmol/L (98-107); EST Glomerular Filtration Rate 79 mL/min (>60); Est Glom Filt Rate - Afr Amer 95 mL/min (>60); Estimated Creatinine Clearance 60.66 ml/min; Globulin 3.7 g/dL (2.2-4.2); Glucose 112 mg/dL (74-106); Potassium 3.6 mmol/L (3.5-5.1); Protein, Total 6.8 g/dL (6.4-8.2); Sodium Level 139 mmol/L (136-145)
--- NOTE | 2021-04-07 11:30 | GALL_PTH ---
PATIENT: FELIPE MOORE LOC: [facility] U#:[id number] AGE/SX: 55/F ROOM: MA318 RE04/06/[address]: Dr. Gonzalo Lambert MD : 1965 BED: 1 DIS: 04/07/2021 SPEC #: [id number] RECD: 04/07/21 12:30 STATUS: FRANK GUZMAN #: [id number] AURE: 04/07/21 11:[address]: Gonzalo Lambert DEPT: SURGICAL PATHOLOGY RECD BY: Ginny Ng ENTERED: 04/07/21 12:48 SP TYPE: ELENO PANDYA DR: Dr. Val Ruffin MD Tissues: Gallbladder, NOS Procedures: Surgery Specimen Level III HEADER OPERATION: Laparoscopic cholecystectomy PRE-OP DIAGNOSIS: Acute cholecystitis due to biliary calculus TISSUE SUBMITTED: Gallbladder MICROSCOPIC DIAGNOSIS Gallbladder, cholecystectomy: Acute and chronic ulcerated cholecystitis and cholelithiasis. SJ:rg 04/08/2021 MICROSCOPIC DESCRIPTION Slides are reviewed. GROSS DESCRIPTION Received is one container labeled with the patient's name and designated gallbladder. The specimen consists of a gallbladder measuring 8.5 cm in length and up to 4.5 cm in diameter. The external surface is pink-wilson, smooth and glistening for the most part. Focally it is granular, hemorrhagic and contains cautery artifact. The gallbladder contains greenish yellow to slightly hemorrhagic bile and multiple brown to multifaceted stones measuring in aggregate 6 x 5 x 2 cm and 0.1 to 0.7 cm in greatest dimension. The mucosa is bile-stained and without any mass lesions. The gallbladder wall measures up to 0.2 cm in thickness. Straightener sections from the gallbladder and the cystic duct are submitted in one cassette. / ANEESH:arabella 04/07/2021 TC:2 CPT: 98275
--- NOTE | 2021-04-07 12:04 | PCM.OPRPT ---
Problems Associated Problem List Diagnoses (1) Acute cholecystitis due to biliary calculus: Report of Operation Date of Procedure: 04/07/21 Pre-Operative Diagnosis: Acute cholecystitis with cholelithiasis Post-Operative Diagnosis: Same Surgery/Procedure Performed:: Laparoscopic cholecystectomy Surgeon: Gonzalo Lambert air cargo agent: Shaye Muller Type of Anesthesia: General Anesthesiologist: Tristian Orozco Specimen's removed: Gallbladder Drains: None Estimated Blood Loss (mL): < 25 cc Fluids Replaced: 700 cc lr Description of Procedure: Patient was brought in the operating room. Placed in the supine position. Under excellent general anesthetic the abdomen was sterilely prepped and draped in usual fashion. Local was injected infraumbilically. Dissection was carried down to the fascia. The fascia is grasped with a Audie. The varies needle was placed inside the abdomen. Abdomen was insufflated to 15 torr. A 10/12 trocar was placed without difficulty. Patient was placed in the head up and rotated to the left position. Subxiphoid #5 trochars placed, inferior to this another #5 trocar was placed, laterally a #5 trocar was placed. All these were placed under direct visualization without injury to underlying structures. Gallbladder was aspirated culture and sensitivity of the fluid was obtained. Moderate amount of adhesions were taken from the gallbladder wall the gallbladder was grasped and retracted in cephalad direction. I dissected out the cystic duct the cystic artery and posterior to the the liver. I placed hemoclips proximally and distally on the duct ligated the duct I placed hemoclips proximally distally on the artery and ligated the artery. Deliver the gallbladder from the gallbladder bed with use of electrocautery had excellent hemostasis. Placed in a specimen bag and delivered through the umbilical port without difficulty. Irrigated the right upper quadrant liver bed was clean good and the stasis was noted. Clips were in place. Removed the trochars under direct visualization good with stasis was noted. Close the fascia the umbilical port with a [id number] stitch of 0 Vicryl. Skin incisions were closed with subcuticular stitches of 4-0 Monocryl. Steri-Strips were applied sterile dressings were applied and the patient tolerated the procedure well. Admit VTE Documentation VTE Present on Admission: No VTE Mechan Device Prophylaxis: SCD's VTE Pharm Prophylaxis ordered?: No Reason prophylaxis not ordered:: Procedure Not Indicated
[2021-04-07] MEDS: Bupivacaine Mpf 0.5% 30 ML VIAL (12:09)
--- NOTE | 2021-04-07 12:09 | DCINST_ITS ---
Discharge Instructions Procedure Gallbladder Diet Discharge Diet: Light diet - advance as tolerated Activity Discharge Activity: May Not Drive (for 2-3 days or while taking narcotic pain medications.) and - (Do not drive, work heavy equipment or sign legal documents for 24 hours.) May shower in (days): 1 (with the bandage in place.) Additional Activity Instructions:: Pain medication may cause nausea. You should typically eat light foods as you take your pain medications. Pain medication may also cause constipation. If this is a problem for you, please discuss with your doctor. Dressing / Incision Call your doctor if your incision/area has: Continuous Slow Oozing, Sudden Increased Bleeding, Increased Pain/ Swelling, Increased Redness and Foul Smelling Discharge Call your doctor if you observe: Fever of 101 or Higher Suture Line Care: Avoid Pulling/Pushing and Avoid Pinching/Bending Additional Dressing/Incision Instructions:: Leave operative bandaids on for 2 days. When you remove dressing, leave Steri-Strips on until your follow-up appointment, or until the Steri-Strips fall off on their own. Follow Up Care Please Follow Up With: Aleida York PA-C When: Call office to schedule an appointment to be seen in 7 days after surgery. Test Results: Test results from this visit will be discussed in further detail at your follow-up appointment, if applicable. Discharge Plan Admission Admit Date/Time: 04/06/21 19:37 Attending Provider: Gonzalo Lambert Primary Care Provider: Val Ruffin Discharge Orders/Prescriptions Prescriptions: New oxycodone-acetaminophen [Percocet] 5-325 mg tablet 1 tab PO Q4H PRN (Reason: pain) 5 Days Qty: 20 RF: 0 No Action multivitamin [Daily Multi-Vitamin] Tablet 1 tab PO DAILY RF: 0 turmeric root extract 500 mg capsule 500 mg PO DAILY RF: 0 mupirocin 2 % ointment 1 applic topical TID 7 Days Qty: 22 RF: 1 zinc 100 mg Tablet 100 mg PO DAILY RF: 0 ascorbic acid (vitamin C) [Vitamin C] 500 mg Tablet PO DAILY RF: 0 cholecalciferol (vitamin D3) [Vitamin D3] 25 mcg (1,000 unit) Tablet PO DAILY RF: 0 Referrals / Follow Up: Val Ruffin MD [Primary Care Provider] - [place],Aleida PA, PA-C [PHYSICIAN AIRPLANE AND ENGINE INSPECTOR] -
[2021-04-07] MEDS: oxyCODONE 5 MG Tablet 10 MG PO (20:29)
== END 2021-04-07 20:40 | disposition home or self-care (01) ==
LOC: ED 19:48 → MS3 20:02
PROVIDERS: Admitting Provider Surgery; Emergency Provider Emergency Medicine; PCP Internal Medicine; Visit Provider Surgery
PROC: (CPT 47562; principal; 2021-04-07 11:10)
DX: K80.12 Calculus of gallbladder with acute and chronic cholecystitis without obstruction (principal)
CPT/HCPCS: 47562; 36415; 74177; 76705; 80048; 80053; 80076; 83690; 85025; 87070; 87075; 87205; 87426; 88304; 93005; 96361; 96365; 96366; 96375; 96376; 99218; 99251; 99284; J7030; J7050; Q9967; A4216; G0378; G0463; J2405

== ENCOUNTER → 2021-06-27 | Outpatient (CLI) | payer OTHER, SELFPAY ==
--- NOTE | 2021-06-27 07:58 | BI_ITS ---
MAMMOGRAPHY - BILATERAL SCREENING REASON FOR EXAM: Female, 56 years old. Routine annual screening examination. PERTINENT HISTORY: Grandmother with breast cancer. TECHNIQUE: Digital bilateral breast jennifer (3D mammographic acquisition) in the CC and MLO projections. 2-D mediolateral oblique (MLO) and craniocaudad (CC) views of both breasts were obtained. CAD: Full Field Digital Mammography with Computer Added Detection was performed. COMPARISON: Comparison is made with prior examination dated 10/24/2019 and 06/19/2020. FINDINGS: Breast Composition: The breasts are extremely dense, which lowers the sensitivity of mammography. There are no dominant masses or suspicious calcifications. A tissue clip marker is once again seen in a tiny nodular density in the upper lateral aspect of the left breast. Stable small benign-appearing bilateral axillary lymph nodes. No other significant abnormalities are identified. There has been no significant change since the prior study. BI/SCRN MAMM (CAD)W/JENNIFER BILAT IMPRESSION: Stable bilateral screening mammogram. Yearly follow-up mammogram recommended. (A) ASSESSMENT CATEGORY: BIRADS Category 2: Benign. A letter regarding these results will be sent to the patient by the facility within 30 days. Approximately 10% of breast cancers are not detected by mammography. A normal mammogram should not delay biopsy of a clinically suspicious abnormality. [id number] Electronically Signed: Maximo Dickerson MD at 8:55 EDT ,
== END | disposition home or self-care (01) ==
LOC: OPBI 07:58
PROVIDERS: PCP Internal Medicine; Visit Provider Internal Medicine
DX: Z12.31 Encounter for screening mammogram for malignant neoplasm of breast (principal)
CPT/HCPCS: 77063; 77067

== ENCOUNTER → 2022-01-06 | Outpatient (CLI) | payer OTHER, SELFPAY ==
[2022-01-06 12:59] LABS: Absolute Lymphocyte Count 1.75 X10^3/uL (0.83-4.51); Absolute Neutrophil Count 2.8 X10^3/uL (2.0-7.7); Basophil# 0.05 X10^3/uL; Eosinophil# 0.15 X10^3/uL; Eosinophils% 2.9 % (0-5); Hematocrit 40.7 % (37-47); Hemoglobin 13.6 g/dL (12.0-15.0); Lymphocyte # 1.75 X10^3/ul (0.83-4.51); Lymphocyte % 33.7 % (19-41); Mean Corp Hgb Conc 33.4 g/dL (32-36); Mean Corpuscular Hgb 29.8 pg (27.0-32.0); Mean Corpuscular Volume 89.3 fL (81-99); Monocyte# 0.43 X10^3/uL; Monocyte% 8.3 % (0-10); NRBC Flagged by Analyzer 0 % (0-5); Neutrophil # 2.76 X10^3/uL (2.7-7.7); Neutrophil % 53.1 % (47-70); POSITIVE COUNT YES; RBC Distribution Width CV 12.4 % (11.6-14.6); RBC Distribution Width SD 40.6 fl (35.1-43.9); Red Blood Count 4.56 M/mm3 (4.2-5.4); White Blood Count 5.2 K/mm3 (4.4-11.0)
[2022-01-06 13:01] LABS: ALB/GLOB Ratio 0.8 RATIO (0.9-2.4); AST(SGOT) 13 U/L (15-37); Alanine Aminotransfer ALT/SGPT 25 U/L (13-56); Albumin, Serum 3.3 g/dL (3.2-5.0); Alkaline Phosphatase 62 U/L (45-117); Amylase 30 U/L (25-115); Anion Gap 5 (5-15); BUN 10 mg/dL (7-18); BUN/Creat Ratio 13.3 RATIO (10-20); Calcium,Total 8.9 mg/dL (8.5-10.1); Chloride 109 mmol/L (98-107); Cholesterol 199 mg/dL (200); Creatinine, Serum 0.75 mg/dL (0.55-1.02); EST Glomerular Filtration Rate 85 mL/min (>60); Est Glom Filt Rate - Afr Amer 103 mL/min (>60); Globulin 3.9 g/dL (2.2-4.2); Glucose 93 mg/dL (74-106); High Density Lipoprotein 46 mg/dL; Lipase 95 U/L (73-393); Potassium 3.9 mmol/L (3.5-5.1); Protein, Total 7.2 g/dL (6.4-8.2); Sodium Level 140 mmol/L (136-145); Thyroid Stim Hormone (TSH) 6.27 uIU/mL (0.358-3.74); Triglycerides 170 mg/dL; Very Low Density Lipoprotein 34 mg/dL (5-40)
[2022-01-06 13:04] LABS: Differential Indicated SCAN CRITERIA MET
[2022-01-06 14:12] LABS: Differential Comment SCANNED
[2022-01-06 14:13] LABS: Platelet Estimate ADEQUATE (ADEQ)
[2022-01-06 14:57] LABS: Free T3 2.3 pg/mL (2.18-3.98); T4 Free Direct 0.96 ng/dL (0.76-1.46)
== END | disposition home or self-care (01) ==
LOC: BIMLAB 08:49
PROVIDERS: Physician Assistant; PCP Internal Medicine; Visit Provider Internal Medicine
DX: Z00.00 Encounter for general adult medical examination without abnormal findings (principal); Z90.49 Acquired absence of other specified parts of digestive tract; R19.7 Diarrhea, unspecified; K21.9 Gastro-esophageal reflux disease without esophagitis; R79.89 Other specified abnormal findings of blood chemistry
CPT/HCPCS: 36415; 80053; 80061; 82150; 83690; 84439; 84443; 84481; 85025

== ENCOUNTER → 2022-05-20 | Outpatient (CLI) | payer OTHER, SELFPAY ==
[2022-05-20 13:13] LABS: T4 Free Direct 0.95 ng/dL (0.76-1.46); Thyroid Stim Hormone (TSH) 6.02 uIU/mL (0.358-3.74)
[2022-05-21 13:06] LABS: Thyroid Peroxidase AB 16 IU/mL (0-34)
== END | disposition home or self-care (01) ==
LOC: BIMLAB 09:40
PROVIDERS: PCP Internal Medicine; Referring Provider Internal Medicine; Visit Provider Internal Medicine
DX: R94.6 Abnormal results of thyroid function studies (principal)
CPT/HCPCS: 36415; 84439; 84443; 86376

== ENCOUNTER → 2022-08-31 | Outpatient (CLI) | payer OTHER, SELFPAY | END | disposition home or self-care (01) | LOC: LABSPEC 11:27 | PROVIDERS: PCP Internal Medicine; Referring Provider Internal Medicine; Visit Provider Internal Medicine | DX: R07.89 Other chest pain (principal) | CPT/HCPCS: 87633 ==

== ENCOUNTER → 2023-06-04 | Outpatient (CLI) | payer OTHER, SELFPAY ==
[2023-06-04 12:07] LABS: Absolute Lymphocyte Count 1.55 X10^3/uL (0.83-4.51); Absolute Neutrophil Count 3.1 X10^3/uL (2.0-7.7); Basophil# 0.05 X10^3/uL; Basophil% 0.9 % (0-1); Eosinophil# 0.26 X10^3/uL; Eosinophils% 4.9 % (0-5); Hematocrit 40.9 % (37-47); Hemoglobin 13.5 g/dL (12.0-15.0); Lymphocyte # 1.55 X10^3/ul (0.83-4.51); Lymphocyte % 28.9 % (19-41); Mean Corpuscular Hgb 29.2 pg (27.0-32.0); Mean Corpuscular Volume 88.5 fL (81-99); Mean Platelet Vol. 12.3 fl (6.2-12.0); Monocyte# 0.44 X10^3/uL; Monocyte% 8.2 % (0-10); NRBC Flagged by Analyzer 0 % (0-5); Neutrophil # 3.05 X10^3/uL (2.7-7.7); Neutrophil % 56.9 % (47-70); POSITIVE COUNT YES; RBC Distribution Width CV 13.2 % (11.6-14.6); RBC Distribution Width SD 42.6 fl (35.1-43.9); Red Blood Count 4.62 M/mm3 (4.2-5.4); White Blood Count 5.4 K/mm3 (4.4-11.0)
[2023-06-04 13:09] LABS: Differential Indicated SCAN CRITERIA MET; Platelet Estimate SLT DEC (ADEQ)
[2023-06-04 13:13] LABS: ALB/GLOB Ratio 0.9 RATIO (0.9-2.4); AST(SGOT) 18 U/L (15-37); Alanine Aminotransfer ALT/SGPT 28 U/L (13-56); Albumin, Serum 3.5 g/dL (3.2-5.0); Alkaline Phosphatase 57 U/L (45-117); Anion Gap 4 (5-15); BUN 9 mg/dL (7-18); BUN/Creat Ratio 10.8 RATIO (10-20); Calcium,Total 9.1 mg/dL (8.5-10.1); Chloride 110 mmol/L (98-107); Cholesterol 210 mg/dL (200); Creatinine, Serum 0.83 mg/dL (0.55-1.02); EST Glomerular Filtration Rate 75 mL/min (>60); Est Glom Filt Rate - Afr Amer 91 mL/min (>60); Globulin 3.9 g/dL (2.2-4.2); Glucose 95 mg/dL (74-106); High Density Lipoprotein 47 mg/dL; Potassium 4.1 mmol/L (3.5-5.1); Protein, Total 7.4 g/dL (6.4-8.2); Sodium Level 140 mmol/L (136-145); T4 Free Direct 0.96 ng/dL (0.76-1.46); Triglycerides 148 mg/dL; Very Low Density Lipoprotein 30 mg/dL (5-40)
[2023-06-15 17:07] LABS: T3 Reverse 13.3 ng/dL (9.2-24.1); Thyroid Peroxidase AB 15 IU/mL (0-34); Thyroid Stim Immunoglob <0.10 IU/L (0.00-0.55); Thyroxin Bind Glob (TBG) 17 ug/mL (13-39)
== END | disposition home or self-care (01) ==
LOC: BIMLAB 09:04
PROVIDERS: PCP Internal Medicine; Referring Provider Internal Medicine; Visit Provider Internal Medicine
DX: Z00.00 Encounter for general adult medical examination without abnormal findings (principal); R94.6 Abnormal results of thyroid function studies
CPT/HCPCS: 36415; 80053; 80061; 84439; 84442; 84443; 84445; 84482; 85025; 86376

== ENCOUNTER → 2023-06-17 | Outpatient (CLI) | payer OTHER, SELFPAY ==
--- NOTE | 2023-06-17 07:50 | BI_ITS ---
MAMMOGRAPHY - BILATERAL SCREENING REASON FOR EXAM: Female, 58 years old. Routine annual screening examination. PERTINENT HISTORY: Grandmother with breast cancer. Prior left breast biopsy. TECHNIQUE: Digital bilateral breast jennifer (3D mammographic acquisition) in the CC and MLO projections. 2-D mediolateral oblique (MLO) and craniocaudad (CC) views of both breasts were obtained. CAD: Full Field Digital Mammography with Computer Added Detection was performed. COMPARISON: Comparison is made with prior study dated June 27, 2021 and June 19, 2020. FINDINGS: Breast Composition: The breasts are extremely dense, which lowers the sensitivity of mammography. There are no dominant masses or suspicious calcifications. A tissue clip marker is seen in the upper lateral aspect of the left breast. Stable small benign-appearing bilateral axillary lymph nodes. No other significant abnormalities are identified. There has been no significant change since the prior study. BI/SCRN MAMM (CAD)W/JENNIFER BILAT IMPRESSION: Stable bilateral screening mammogram. Yearly follow-up mammogram recommended. (A) ASSESSMENT CATEGORY: BIRADS Category 2: Benign. A letter regarding these results will be sent to the patient by the facility within 30 days. Approximately 10% of breast cancers are not detected by mammography. A normal mammogram should not delay biopsy of a clinically suspicious abnormality. [id number] Electronically Signed: Maximo Dickerson MD at 8:54 EDT ,
== END | disposition home or self-care (01) ==
LOC: OPBI 07:50
PROVIDERS: PCP Internal Medicine; Referring Provider Internal Medicine; Visit Provider Internal Medicine
DX: Z12.31 Encounter for screening mammogram for malignant neoplasm of breast (principal); Z80.3 Family history of malignant neoplasm of breast
CPT/HCPCS: 77063; 77067

== ENCOUNTER → 2024-06-05 | Outpatient (CLI) | payer OTHER, SELFPAY ==
[2024-06-05 13:12] LABS: Absolute Lymphocyte Count 1.81 X10^3/uL (0.83-4.51); Absolute Neutrophil Count 3.1 X10^3/uL (2.0-7.7); Basophil# 0.04 X10^3/uL; Basophil% 0.7 % (0-1); Eosinophil# 0.16 X10^3/uL; Eosinophils% 2.9 % (0-5); Hematocrit 39.5 % (37-47); Hemoglobin 13.1 g/dL (12.0-15.0); Lymphocyte # 1.81 X10^3/ul (0.83-4.51); Lymphocyte % 32.8 % (19-41); Mean Corp Hgb Conc 33.2 g/dL (32-36); Mean Corpuscular Hgb 29.4 pg (27.0-32.0); Mean Corpuscular Volume 88.8 fL (81-99); Mean Platelet Vol. 12.7 fl (6.2-12.0); Monocyte# 0.44 X10^3/uL; NRBC Flagged by Analyzer 0 % (0-5); Neutrophil # 3.05 X10^3/uL (2.7-7.7); Neutrophil % 55.4 % (47-70); Platelet Count 114 K/mm3 (150-450); RBC Distribution Width CV 12.7 % (11.6-14.6); RBC Distribution Width SD 41.1 fl (35.1-43.9); Red Blood Count 4.45 M/mm3 (4.2-5.4); White Blood Count 5.5 K/mm3 (4.4-11.0)
[2024-06-05 13:45] LABS: ALB/GLOB Ratio 1.3 RATIO (0.9-2.4); AST(SGOT) 20 U/L (<=31); Alanine Aminotransfer ALT/SGPT 25 U/L (<=34); Alkaline Phosphatase 63 U/L (35-104); Anion Gap 13 (5-15); BUN 17 mg/dL (4-19); BUN/Creat Ratio 21.5 RATIO (10-20); Calcium,Total 9.2 mg/dL (7.6-11.0); Carbon Dioxide 20.8 mmol/L (21.0-32.0); Chloride 106 mmol/L (98-108); Cholesterol 202 mg/dL (<=200); Creatinine, Serum 0.79 mg/dL (0.70-1.20); EST Glomerular Filtration Rate 87 (>60); Glucose 92 mg/dL (70-99); High Density Lipoprotein 48 mg/dL; Low Density Lipoprotein Calc. 123 mg/dL; Potassium 3.8 mmol/L (3.3-5.1); Protein, Total 7.1 g/dL (5.9-8.4); Sodium Level 140 mmol/L (133-145); Total Bilirubin 0.44 mg/dL (0.00-1.30); Triglycerides 156 mg/dL; Very Low Density Lipoprotein 31 mg/dL (5-40); cholesterol:hdl ratio screen 4.24
== END | disposition home or self-care (01) ==
LOC: BIMLAB 08:30
PROVIDERS: PCP Internal Medicine; Referring Provider Internal Medicine; Visit Provider Internal Medicine
DX: Z00.00 Encounter for general adult medical examination without abnormal findings (principal); E03.8 Other specified hypothyroidism
CPT/HCPCS: 36415; 80053; 80061; 84439; 84443; 85025

== ENCOUNTER → 2024-06-06 | Outpatient (CLI) | payer OTHER, SELFPAY ==
[2024-06-08 04:07] LABS: Thyroid Peroxidase AB 22 IU/mL (0-34)
== END | disposition home or self-care (01) ==
LOC: BIMLAB 11:25
PROVIDERS: PCP Internal Medicine; Referring Provider Internal Medicine; Visit Provider Internal Medicine
DX: E03.8 Other specified hypothyroidism (principal)
CPT/HCPCS: 36415; 86376

== ENCOUNTER → 2024-06-19 | Outpatient (CLI) | payer OTHER, SELFPAY ==
--- NOTE | 2024-06-19 08:45 | BI_ITS ---
EXAM: SCRN MAMM (CAD)W/JENNIFER BILAT DATE: 06/19/2024 CLINICAL HISTORY: F, Age 59 y/o , BREAST CANCER SCREENING Paternal grandmother with breast cancer. Prior left ultrasound-guided breast biopsy. BREAST CANCER RISK ASSESSMENT: Not assessed. TECHNIQUE: Bilateral screening digital breast tomosynthesis with 2D and 3D images. Computer aided detection. COMPARISON: Prior exam(s) dated June 17, 2023.. FINDINGS: TISSUE DENSITY: The breast tissue is heterogenously dense, which may obscure small masses. Bilateral Breast Mammographic Findings: No significant masses, calcifications or other abnormalities are identified. No suspicious masses, areas of developing architectural distortion, or suspicious calcifications. There has been no significant interval change. A tissue clip marker is seen in the upper lateral aspect of the left breast. Stable benign-appearing axillary lymph nodes. BI/SCRN MAMM (CAD)W/JENNIFER BILAT IMPRESSION: OVERALL FINAL ASSESSMENT: BIRADS 2 BENIGN FINDING RECOMMENDATION: Routine annual follow-up in 1 Year A letter with findings and recommendations will be mailed to the patient. Reading Location: [place] [id number]
== END | disposition home or self-care (01) ==
LOC: OPBI 08:43
PROVIDERS: PCP Internal Medicine; Referring Provider Internal Medicine; Visit Provider Internal Medicine
DX: Z12.31 Encounter for screening mammogram for malignant neoplasm of breast (principal)
CPT/HCPCS: 77063; 77067

== ENCOUNTER → 2024-10-04 | Outpatient (CLI) | payer OTHER, SELFPAY ==
[2024-10-04 12:44] LABS: Hematocrit 41.2 % (37-47); Hemoglobin 13.4 g/dL (12.0-15.0); Immature Granulocytes Count 0.010 X10^3/uL (0.0-0.0); Mean Corp Hgb Conc 32.5 g/dL (32-36); Mean Corpuscular Volume 89.8 fL (81-99); Mean Platelet Vol. 12.4 fl (6.2-12.0); NRBC Flagged by Analyzer 0 % (0-5); Platelet Count 110 K/mm3 (150-450); RBC Distribution Width CV 12.7 % (11.6-14.6); RBC Distribution Width SD 41.9 fl (35.1-43.9); Red Blood Count 4.59 M/mm3 (4.2-5.4); White Blood Count 5.5 K/mm3 (4.4-11.0)
[2024-10-04 13:13] LABS: AST(SGOT) 17 U/L (<=31); Alanine Aminotransfer ALT/SGPT 20 U/L (<=34); Albumin, Serum 4.2 g/dL (3.5-5.0); Alkaline Phosphatase 60 U/L (35-104); Anion Gap 10 (5-15); BUN 12 mg/dL (4-19); BUN/Creat Ratio 13.8 RATIO (10-20); Calcium,Total 9.3 mg/dL (7.6-11.0); Carbon Dioxide 23.9 mmol/L (21.0-32.0); Chloride 106 mmol/L (98-108); Globulin 2.9 g/dL (2.2-4.2); Glucose 98 mg/dL (70-99); Potassium 4.3 mmol/L (3.3-5.1)
== END | disposition home or self-care (01) ==
LOC: BIMLAB 08:17
PROVIDERS: PCP Internal Medicine; Referring Provider Internal Medicine; Visit Provider Internal Medicine
DX: E03.9 Hypothyroidism, unspecified (principal); D69.6 Thrombocytopenia, unspecified
CPT/HCPCS: 36415; 80053; 84439; 84443; 85025

== ENCOUNTER → 2024-10-24 | Outpatient (CLI) | payer OTHER, SELFPAY | END | disposition home or self-care (01) | LOC: SL 09:05 | PROVIDERS: PCP Internal Medicine; Visit Provider Internal Medicine | DX: G47.10 Hypersomnia, unspecified (principal) | CPT/HCPCS: 95806 ==